=== PATIENT | male | born 1965 | race Caucasian/White ===

== ENCOUNTER 2020-04-27 17:23 | Inpatient (IN) ==
[2020-04-27 18:12] LABS: Hemoglobin 6.9 g/dL (12.9-16.9); Mean Corpuscular HGB Conc 31.4 g/dL (31.6-35.5); Mean Corpuscular Hemoglobin 31.9 pg (28.0-33.3); Mean Corpuscular Volume 101.9 fL (83.0-100.0); Mean Platelet Volume 10.1 fL (9.4-12.4); Platelet Count 122 K/mcL (140-400); Red Blood Count 2.16 M/mcL (4.19-5.50); Red Cell Distribution Width 23.6 % (11.5-14.5); White Blood Count 18.5 K/mcL (4.3-11.1)
[2020-04-27 18:17] LABS: INR 1.8; Prothrombin Time 20.8 Seconds (9.4-12.1)
[2020-04-27 18:31] LABS: Alanine Aminotransferase 79 Units/L (7-52); Albumin 1.5 g/dL (3.5-5.7); Albumin/Globulin Ratio 0.3 (1.1-2.2); Alkaline Phosphatase 106 Units/L (34-104); Aspartate Amino Transferase 132 Units/L (13-39); BUN/Creatinine Ratio 40 (6-26); Bilirubin,Direct 0.6 mg/dL (0.0-0.2); Bilirubin,Indirect 0.8 mg/dL (0.0-1.0); Bilirubin,Total 1.4 mg/dL (0.3-1.0); Blood Urea Nitrogen 50 mg/dL (6-20); Calcium 8.2 mg/dL (8.6-10.3); Carbon Dioxide 13 mEq/L (23-29); Chloride 116 mEq/L (98-107); Glucose 105 mg/dL (70-105); Lipase 54 Units/L (11-82); Osmolality,Calculated 290 (280-300); Potassium 5.6 mEq/L (3.5-5.1); Sodium 133 mEq/L (136-145); Total Protein 7.5 g/dL (6.4-8.9); eGFR For African Americans > 60 (> 60); eGFR For Non-African Americans 60 (> 60)
[2020-04-27 18:40] LABS: VBG HCO3 14 mEq/L (21-27); VBG PCO2 21 mmHg (41-51); VBG PH 7.44 pH Units (7.32-7.42); VBG PO2 167 mmHg (25-50)
[2020-04-27] MEDS ORDERED: Gadolinium Contrast Agent (WT Based) IV PRN (19:09)
[2020-04-27] MEDS ORDERED: Vancomycin 1,500 MG/265 ML IV.SOLN IVPB ONE (22:06)
[2020-04-27] MEDS ORDERED: Cefepime HCl 2,000 MG in Water for inj. (sterile) 20 ML IVP ONE (22:06)
[2020-04-27] MEDS ORDERED: 0.9 % Sodium Chloride 500 ML IVC ONE (22:26)
[2020-04-27 23:32] LABS: Bacteria,Urine Few per hpf (None-Few); Bilirubin,Urine Negative (Negative); Blood,Urine Large (Negative); Clarity,Urine Clear (Clear); Color,Urine Light-Yellow (Yellow); Glucose,Urine (UA) Normal (Normal); Ketones,Urine Negative (Negative); Leukocyte Esterase,Urine Negative (Negative); Mucus,Urine Few per lpf (None-Few); Nitrite,Urine Negative (Negative); PH,Urine 5.5 pH Units (5.0-8.0); Protein,Urine Trace mg/dL (Neg-Trace); Specific Gravity,Urine 1.014 (1.010-1.025); Squamous Epithelial Cell,Urine Few per hpf (None-Few); Urobilinogen,Urine Normal (Normal)
[2020-04-27] MEDS ORDERED: Ondansetron ODT 4 MG TAB.RAPDIS SL PRN (23:50)
[2020-04-27] MEDS ORDERED: Naloxone 0.4 MG/ML INJ IVP PRN (23:50)
[2020-04-28 01:33] LABS: Hematocrit 23.9 % (37.5-50.1); Hemoglobin 7.2 g/dL (12.9-16.9); Mean Corpuscular HGB Conc 30.1 g/dL (31.6-35.5); Mean Corpuscular Hemoglobin 31.9 pg (28.0-33.3); Mean Corpuscular Volume 105.8 fL (83.0-100.0); Mean Platelet Volume 10.6 fL (9.4-12.4); Platelet Count 117 K/mcL (140-400); Red Blood Count 2.26 M/mcL (4.19-5.50); Red Cell Distribution Width 23.7 % (11.5-14.5); White Blood Count 16.4 K/mcL (4.3-11.1)
[2020-04-28] MEDS ORDERED: 0.9 % Sodium Chloride 250 ML ONE ×3 (01:49→19:54)
[2020-04-28 01:59] LABS: BUN/Creatinine Ratio 41 (6-26); Blood Urea Nitrogen 49 mg/dL (6-20); Calcium 8.2 mg/dL (8.6-10.3); Carbon Dioxide 12 mEq/L (23-29); Chloride 117 mEq/L (98-107); Glucose 112 mg/dL (70-105); Osmolality,Calculated 290 (280-300); Potassium 5.7 mEq/L (3.5-5.1); Sodium 133 mEq/L (136-145); eGFR For African Americans > 60 (> 60); eGFR For Non-African Americans > 60 (> 60)
[2020-04-28] MEDS ORDERED: Isovue-370 500 ML BOTTLE IVP ONE (02:33)
[2020-04-28 02:38] LABS: Adenovirus Not Detected (Not Detect); Bordetella Pertussis Not Detected (Not Detect); Chlamydophila pneumoniae Not Detected (Not Detect); Coronavirus 229E Not Detected (Not Detect); Coronavirus HKU1 Not Detected (Not Detect); Coronavirus NL63 Not Detected (Not Detect); Coronavirus OC43 Not Detected (Not Detect); Human Metapneumovirus Not Detected (Not Detect); Human Rhinovirus/Enterovirus Not Detected (Not Detect); Influenza A Subtype 2009 H1 Not Detected (Not Detect); Influenza B Not Detected (Not Detect); Parainfluenza Virus 1 Not Detected (Not Detect); Parainfluenza Virus 2 Not Detected (Not Detect); Parainfluenza Virus 3 Not Detected (Not Detect); Parainfluenza Virus 4 Not Detected (Not Detect); Respiratory Syncytial Virus Not Detected (Not Detect); SARS-CoV-2 Not Detected (Not Detect)
[2020-04-28 02:39] LABS: Mycoplasma pneumoniae Not Detected (Not Detect)
[2020-04-28] MEDS ORDERED: 0.9 % Sodium Chloride 1,000 ML IVC ONE (03:29)
[2020-04-28 03:48] LABS: Alanine Aminotransferase 80 Units/L (7-52); Albumin 1.5 g/dL (3.5-5.7); Albumin/Globulin Ratio 0.3 (1.1-2.2); Alkaline Phosphatase 104 Units/L (34-104); Aspartate Amino Transferase 138 Units/L (13-39); Bilirubin,Direct 0.8 mg/dL (0.0-0.2); Bilirubin,Indirect 0.5 mg/dL (0.0-1.0); Bilirubin,Total 1.3 mg/dL (0.3-1.0); Globulin 5.9 g/dL (2.4-3.5); Total Protein 7.4 g/dL (6.4-8.9)
[2020-04-28 03:58] LABS: Amorphous Sediment,Urine Few per hpf (None-Few); Bacteria,Urine Few per hpf (None-Few); Bilirubin,Urine Negative (Negative); Blood,Urine Large (Negative); Clarity,Urine Clear (Clear); Color,Urine Light-Yellow (Yellow); Glucose,Urine (UA) Normal (Normal); Ketones,Urine Negative (Negative); Leukocyte Esterase,Urine Negative (Negative); Mucus,Urine Few per lpf (None-Few); Nitrite,Urine Negative (Negative); PH,Urine 5.5 pH Units (5.0-8.0); Protein,Urine Trace mg/dL (Neg-Trace); Specific Gravity,Urine 1.014 (1.010-1.025); Squamous Epithelial Cell,Urine Few per hpf (None-Few); Urobilinogen,Urine Normal (Normal)
[2020-04-28 04:06] LABS: Amphetamine Screen,Urine Negative ng/mL (Cutoff=1000); Barbiturate Screen,Urine Negative ng/mL (Cutoff=200); Benzodiazepines Screen,Urine Negative ng/mL (Cutoff=200); Cannabinoid Screen,Urine Negative ng/mL (Cutoff = 50); Cocaine Screen,Urine Negative ng/mL (Cutoff= 300); Opiate Screen,Urine Negative ng/mL (Cutoff=300); Phencyclidine Screen,Urine Negative ng/mL (Cutoff=25)
[2020-04-28] MEDS ORDERED: Perflutren Lipid Microsphere 1.3 ML in 0.9 % Sodium Chloride 8.7 ML IVP PRN (06:05)
[2020-04-28] MEDS: clonazePAM 1 MG TABLET PO SCH ×2 (06:47→08:49)
[2020-04-28 07:32] LABS: % Iron Saturation 23 % (20-55); Iron 34 mcg/dL (65-175); Transferrin 107 mg/dL (203-362)
[2020-04-28 07:43] LABS: Ferritin 449 ng/mL (20-250)
[2020-04-28 07:48] LABS: Folate 5.6 ng/mL (3.0-16.0)
[2020-04-28 07:57] LABS: Vitamin B12 > 1500 pg/mL (250-1100)
[2020-04-28] MEDS ORDERED: Piperacillin/Tazobactam 3.375 GM in 0.9 % Sodium Chloride Mini Bag 100 ML IVPB SCH (08:00)
[2020-04-28] MEDS ORDERED: Calcium Gluconate 1gm/50mL 1 GM/50 ML BAG IVPB ONE (08:42)
[2020-04-28] MEDS ORDERED: Lactulose Oral Soln 20 GM/30 ML UDC PO SCH (09:00)
[2020-04-28] MEDS ORDERED: Albuterol 2.5 MG/3 ML NEBULIZER IH ONE (09:10)
[2020-04-28 12:26] LABS: Hematocrit 23.8 % (37.5-50.1); Hemoglobin 7.4 g/dL (12.9-16.9)
[2020-04-28] MEDS ORDERED: Insulin Human Regular 10 UNIT in 0.9 % Sodium Chloride 10 ML IV ONE (15:07)
[2020-04-28] MEDS ORDERED: *HR* Dextrose 50 % in Water (Syg) 50 ML SYRINGE IVP ONE (15:08)
[2020-04-28] MEDS ORDERED: *HR* Dextrose 50 % in Water (Vial) 50 ML VIAL IVP ONE (15:30)
[2020-04-28 15:55] LABS: Appearance,CSF Clear (Clear)
[2020-04-28 16:10] LABS: Red Blood Cell,CSF < 2000 RBC/mcL
[2020-04-28 16:15] LABS: Appearance of Peritoneal Fl HAZY (Clear)
[2020-04-28 16:25] LABS: RBC,Peritoneal Fluid 2000 RBC/mcL
[2020-04-28 16:26] LABS: Glucose,CSF 48 mg/dL (40-70); Total Protein,CSF 35 mg/dL (15-45)
[2020-04-28 16:35] LABS: VBG HCO3 15 mEq/L (21-27); VBG PCO2 29 mmHg (41-51); VBG PH 7.34 pH Units (7.32-7.42); VBG PO2 152 mmHg (25-50)
[2020-04-28] MEDS: Lactulose Oral Soln 20 GM/30 ML UDC PO SCH ×2 (16:35→20:29)
[2020-04-28] MEDS: Acyclovir 700 MG in D5% in Water 250 ML IVPB SCH (16:35)
[2020-04-28 16:45] LABS: INR 1.8; Prothrombin Time 20.3 Seconds (9.4-12.1)
[2020-04-28 16:54] LABS: BUN/Creatinine Ratio 38 (6-26); Blood Urea Nitrogen 50 mg/dL (6-20); C-Reactive Protein 79 mg/L (Less than 10); Calcium 8.5 mg/dL (8.6-10.3); Carbon Dioxide 15 mEq/L (23-29); Chloride 120 mEq/L (98-107); Glucose 92 mg/dL (70-105); Osmolality,Calculated 299 (280-300); Potassium 5.2 mEq/L (3.5-5.1); Sodium 138 mEq/L (136-145); eGFR For African Americans > 60 (> 60); eGFR For Non-African Americans 56 (> 60)
[2020-04-28 17:09] LABS: Eosinophils,Peritoneal Fluid 0 %
[2020-04-28] MEDS: Erythromycin OPTH Oint LEFT EYE SCH ×2 (17:48→20:25)
[2020-04-28] MEDS: Ampicillin 2 GM in 0.9 % Sodium Chloride Mini Bag 100 ML IVPB SCH ×2 (18:29→20:25)
[2020-04-28] MEDS: Cefepime HCl 2,000 MG in 0.9 % Sodium Chloride Mini Bag 100 ML IVPB SCH (19:12)
[2020-04-28 19:54] LABS: Glucose,Peritoneal Fluid 94 mg/dL (No Ref Range); LDH,Peritoneal Fluid 111 Units/L (No Ref Range); Total Protein,Peritoneal Fluid < 2.0 g/dL
[2020-04-29] MEDS: Ampicillin 2 GM in 0.9 % Sodium Chloride Mini Bag 100 ML IVPB SCH ×3 (01:02→07:30)
[2020-04-29] MEDS: Cefepime HCl 2,000 MG in 0.9 % Sodium Chloride Mini Bag 100 ML IVPB SCH ×2 (01:03→07:29)
[2020-04-29] MEDS: Acyclovir 700 MG in D5% in Water 250 ML IVPB SCH ×2 (02:26→07:29)
[2020-04-29] MEDS ORDERED: Vancomycin 1,000 MG VIAL ONE (03:58)
[2020-04-29 04:00] LABS: Basophils # 0.1 K/mcL (0.0-0.2); Basophils % 0.5 %; Eosinophils # 0.2 K/mcL (0.0-0.6); Eosinophils % 1.4 %; Hematocrit 30.8 % (37.5-50.1); Immature Granulocytes % 0.9 % (0-4); Lymphocytes # 1.5 K/mcL (0.6-4.6); Lymphocytes % 9.5 %; Mean Corpuscular HGB Conc 31.5 g/dL (31.6-35.5); Mean Corpuscular Hemoglobin 32.1 pg (28.0-33.3); Mean Platelet Volume 10.3 fL (9.4-12.4); Monocytes # 0.9 K/mcL (0.0-1.3); Monocytes % 5.7 %; Neutrophils # 12.8 K/mcL (1.6-8.9); Platelet Count 104 K/mcL (140-400); Red Blood Count 3.02 M/mcL (4.19-5.50); Red Cell Distribution Width 22.6 % (11.5-14.5); White Blood Count 15.6 K/mcL (4.3-11.1)
[2020-04-29 04:03] LABS: Hemoglobin 9.7 g/dL (12.9-16.9)
[2020-04-29 04:06] LABS: INR 1.7; Prothrombin Time 19.8 Seconds (9.4-12.1)
[2020-04-29 04:20] LABS: Alanine Aminotransferase 79 Units/L (7-52); Albumin 1.6 g/dL (3.5-5.7); Albumin/Globulin Ratio 0.3 (1.1-2.2); Alkaline Phosphatase 87 Units/L (34-104); Aspartate Amino Transferase 113 Units/L (13-39); BUN/Creatinine Ratio 35 (6-26); Bilirubin,Direct 0.8 mg/dL (0.0-0.2); Bilirubin,Indirect 0.9 mg/dL (0.0-1.0); Bilirubin,Total 1.7 mg/dL (0.3-1.0); Blood Urea Nitrogen 48 mg/dL (6-20); Calcium 8.6 mg/dL (8.6-10.3); Carbon Dioxide 15 mEq/L (23-29); Chloride 121 mEq/L (98-107); Glucose 110 mg/dL (70-105); Osmolality,Calculated 303 (280-300); Potassium 4.7 mEq/L (3.5-5.1); Sodium 140 mEq/L (136-145); Total Protein 7.6 g/dL (6.4-8.9); eGFR For African Americans > 60 (> 60); eGFR For Non-African Americans 53 (> 60)
[2020-04-29] MEDS ORDERED: *HR* Dextrose 50 % in Water (Vial) 50 ML VIAL ONE (05:26)
[2020-04-29] MEDS ORDERED: *HR* Dextrose 50 % in Water (Vial) 50 ML VIAL IVP ONE ×2 (05:29→13:11)
[2020-04-29] MEDS: Lactulose Oral Soln 20 GM/30 ML UDC PO SCH ×3 (07:10→20:50)
[2020-04-29] MEDS: Erythromycin OPTH Oint LEFT EYE SCH ×3 (07:31→20:47)
[2020-04-29] MEDS ORDERED: Ringers Solution, Lactated 1,000 ML IVC SCH (07:45)
[2020-04-29] MEDS ORDERED: *HR* Propofol 200 MG/20 ML VIAL IVP ONE (08:59)
[2020-04-29] MEDS ORDERED: *HR* Succinylcholine 200 MG/10 ML VIAL IVP ONE (09:00)
[2020-04-29] MEDS ORDERED: *HR* Rocuronium Bromide 50 MG/5 ML VIAL ONE ×2 (09:00→10:54)
[2020-04-29] MEDS ORDERED: Lidocaine -MPF 2% 2 ML VIAL ONE ×2 (09:00→10:55)
[2020-04-29] MEDS ORDERED: *HR* FentaNYL (PF) 100 MCG/2 ML VIAL ONE ×2 (10:51→12:31)
[2020-04-29] MEDS ORDERED: Ketamine *HR* 500 MG/10 ML MDV ONE (10:59)
[2020-04-29] MEDS ORDERED: *HR* Vasopressin 20 UNIT/ML VIAL ONE (11:33)
[2020-04-29] MEDS ORDERED: *HR* PHENYLEPHRINE 1,000 MCG/10 ML SYRINGE IVP ONE (11:33)
[2020-04-29] MEDS ORDERED: *HR* HYDROmorphone PF 0.5 MG/0.5 ML SYRINGE IVP PRN (12:21)
[2020-04-29] MEDS ORDERED: Ondansetron 4 MG/2 ML VIAL IVP PRN (12:21)
[2020-04-29 12:42] LABS: Adenovirus F 40/41 PCR Not detected (Not detect); Astrovirus PCR Not detected (Not detect); C.difficile Toxin A/B Gene PCR Not detected (Not detect); Campylobacter by PCR Not detected (Not detect); Cryptosporidium by PCR Not detected (Not detect); Cyclospora cayetanensis PCR Not detected (Not detect); E. coli O157 by PCR Not detected (Not detect); Entamoeba histolytica PCR Not detected (Not detect); Enteroaggregative E.coli(EAEC) Not detected (Not detect); Enteropathogenic E.coli(EPEC) Not detected (Not detect); Enterotoxigenic E.coli (ETEC) Not detected (Not detect); Giardia lamblia PCR Not detected (Not detect); Norovirus GI/GII PCR Not detected (Not detect); Plesiomonas shigelloides PCR Not detected (Not detect); Rotavirus A PCR Not detected (Not detect); Salmonella PCR Not detected (Not detect); Sapovirus PCR Not detected (Not detect); Shig/EnteroinvasiveE coli EIEC Not detected (Not detect); Shigalike tox-prod E coli STEC Not detected (Not detect); Vibrio PCR Not detected (Not detect); Vibrio cholerae PCR Not detected (Not detect); Yersinia enterocolitica PCR Not detected (Not detect)
[2020-04-29] MEDS ORDERED: Perflutren Lipid Microsphere 1.3 ML in 0.9 % Sodium Chloride 8.7 ML IVP PRN (13:11)
[2020-04-29] MEDS ORDERED: Ondansetron ODT 4 MG TAB.RAPDIS SL PRN (13:11)
[2020-04-29] MEDS: 0.9 % Sodium Chloride 1,000 ML IVC SCH ×2 (13:47→16:18)
[2020-04-29] MEDS ORDERED: MetroNIDAZOLE 500 MG/100 ML 500 MG/100 ML BAG IVPB SCH (16:00)
[2020-04-29] MEDS: MetroNIDAZOLE 500 MG/100 ML 500 MG/100 ML BAG IVPB SCH (16:19)
[2020-04-29] MEDS: Gabapentin 300 MG CAPSULE PO SCH ×2 (16:24→20:50)
[2020-04-29 16:47] LABS: RBC,Pleural Fluid 191000 RBC/mcL
[2020-04-29 17:07] LABS: Total Protein,Pleural Fluid 4.5 g/dL
[2020-04-29 17:08] LABS: Hematocrit 22.4 % (37.5-50.1)
[2020-04-29 17:23] LABS: Hemoglobin 6.9 g/dL (12.9-16.9)
[2020-04-29] MEDS ORDERED: 0.9 % Sodium Chloride 250 ML ONE (17:46)
[2020-04-29 19:13] LABS: Appearance of Pleural Fl Bloody (Clear); Monocytes,Pleural Fluid 0 %
[2020-04-29] MEDS ORDERED: Cefepime HCl 2,000 MG in Water for inj. (sterile) 20 ML IVP SCH (20:00)
[2020-04-29] MEDS: Cefepime HCl 2,000 MG in Water for inj. (sterile) 20 ML IVP SCH ×2 (20:48→20:51)
[2020-04-30] MEDS ORDERED: Cefepime HCl 2,000 MG in Water for inj. (sterile) 20 ML IVP SCH
[2020-04-30] MEDS ORDERED: 0.9 % Sodium Chloride 250 ML ONE ×2 (00:14→00:15)
[2020-04-30] MEDS: MetroNIDAZOLE 500 MG/100 ML 500 MG/100 ML BAG IVPB SCH ×3 (00:23→15:45)
[2020-04-30] MEDS: *HR* HYDROcodone/Acet 5/325 mg TABLET PO PRN ×3 (01:24→12:43)
[2020-04-30 05:06] LABS: Basophils # 0.1 K/mcL (0.0-0.2); Basophils % 0.4 %; Eosinophils % 0.2 %; Hematocrit 30.3 % (37.5-50.1); Immature Granulocytes % 1.1 % (0-4); Lymphocytes # 1.9 K/mcL (0.6-4.6); Lymphocytes % 12.1 %; Mean Corpuscular HGB Conc 31.7 g/dL (31.6-35.5); Mean Corpuscular Hemoglobin 30.7 pg (28.0-33.3); Mean Corpuscular Volume 96.8 fL (83.0-100.0); Mean Platelet Volume 10.4 fL (9.4-12.4); Monocytes # 0.8 K/mcL (0.0-1.3); Monocytes % 5.2 %; Platelet Count 100 K/mcL (140-400); Red Blood Count 3.13 M/mcL (4.19-5.50); Red Cell Distribution Width 21.2 % (11.5-14.5)
[2020-04-30 05:07] LABS: Hemoglobin 9.6 g/dL (12.9-16.9)
[2020-04-30 05:16] LABS: INR 1.8; Prothrombin Time 20.1 Seconds (9.4-12.1)
[2020-04-30 05:25] LABS: Albumin 1.6 g/dL (3.5-5.7); Albumin/Globulin Ratio 0.3 (1.1-2.2); Bilirubin,Direct 0.7 mg/dL (0.0-0.2); Bilirubin,Indirect 0.8 mg/dL (0.0-1.0); Bilirubin,Total 1.5 mg/dL (0.3-1.0); Calcium 8.2 mg/dL (8.6-10.3); Globulin 5.5 g/dL (2.4-3.5); Potassium 4.9 mEq/L (3.5-5.1); Total Protein 7.1 g/dL (6.4-8.9)
[2020-04-30] MEDS: 0.9 % Sodium Chloride 1,000 ML IVC SCH ×2 (06:22→09:25)
[2020-04-30] MEDS ORDERED: Ringers Solution, Lactated 1,000 ML IVC SCH (07:30)
[2020-04-30] MEDS: Gabapentin 300 MG CAPSULE PO SCH ×3 (08:02→21:16)
[2020-04-30] MEDS: Cefepime HCl 2,000 MG in Water for inj. (sterile) 20 ML IVP SCH ×2 (08:02→21:15)
[2020-04-30] MEDS: Lactulose Oral Soln 20 GM/30 ML UDC PO SCH ×2 (08:03→15:46)
[2020-04-30] MEDS: Erythromycin OPTH Oint LEFT EYE SCH ×3 (08:04→21:14)
[2020-04-30] MEDS ORDERED: Furosemide 20 MG/2 ML VIAL IVP ONE (08:45)
[2020-04-30] MEDS: *HR* OxyCODONE Immed Rel 5 MG TABLET PO PRN ×3 (10:33→21:18)
[2020-04-30] MEDS: clonazePAM 1 MG TABLET PO SCH ×2 (10:33→21:18)
[2020-04-30] MEDS: Nicotine 14 MG PATCH.TD24 TD SCH (11:25)
[2020-04-30] MEDS ORDERED: Ipratropium/Albuterol Neb 3 ML IH PRN (16:53)
[2020-04-30 17:25] LABS: Hematocrit 27.4 % (37.5-50.1); Hemoglobin 8.6 g/dL (12.9-16.9)
[2020-05-01] MEDS: Lactulose Oral Soln 20 GM/30 ML UDC PO SCH (01:06)
[2020-05-01] MEDS: MetroNIDAZOLE 500 MG/100 ML 500 MG/100 ML BAG IVPB SCH ×4 (01:08→23:20)
[2020-05-01] MEDS: 0.9 % Sodium Chloride 1,000 ML IVC SCH (01:12)
[2020-05-01 04:54] LABS: Immature Granulocytes % 0.7 % (0-4); Mean Platelet Volume 10.8 fL (9.4-12.4); Red Blood Count 2.85 M/mcL (4.19-5.50); Red Cell Distribution Width 21.1 % (11.5-14.5); Segmented Neutrophils % 74.5 %
[2020-05-01 04:56] LABS: Basophils % 0.3 %; Eosinophils # 0.3 K/mcL (0.0-0.6); Eosinophils % 2.4 %; Hemoglobin 8.8 g/dL (12.9-16.9); Immature Platelets 2.6 % (1.1-6.1); Lymphocytes # 2.1 K/mcL (0.6-4.6); Lymphocytes % 15.6 %; Mean Corpuscular HGB Conc 31.4 g/dL (31.6-35.5); Mean Corpuscular Hemoglobin 30.9 pg (28.0-33.3); Mean Corpuscular Volume 98.2 fL (83.0-100.0); Monocytes # 0.9 K/mcL (0.0-1.3); Monocytes % 6.5 %; Neutrophils # 9.8 K/mcL (1.6-8.9); White Blood Count 13.2 K/mcL (4.3-11.1)
[2020-05-01 05:00] LABS: INR 1.9; Platelet Count 95 K/mcL (140-400); Prothrombin Time 21.3 Seconds (9.4-12.1)
[2020-05-01 05:13] LABS: Alanine Aminotransferase 50 Units/L (7-52); Albumin < 1.5 g/dL (3.5-5.7); Alkaline Phosphatase 74 Units/L (34-104); Aspartate Amino Transferase 53 Units/L (13-39); BUN/Creatinine Ratio 42 (6-26); Bilirubin,Direct 0.4 mg/dL (0.0-0.2); Bilirubin,Indirect 0.6 mg/dL (0.0-1.0); Blood Urea Nitrogen 64 mg/dL (6-20); Calcium 7.9 mg/dL (8.6-10.3); Carbon Dioxide 16 mEq/L (23-29); Chloride 121 mEq/L (98-107); Glucose 102 mg/dL (70-105); Osmolality,Calculated 305 (280-300); Potassium 4.9 mEq/L (3.5-5.1); Sodium 138 mEq/L (136-145); Total Protein 6.3 g/dL (6.4-8.9); eGFR For African Americans 58 (> 60); eGFR For Non-African Americans 48 (> 60)
[2020-05-01] MEDS: *HR* OxyCODONE Immed Rel 5 MG TABLET PO PRN (06:15)
[2020-05-01] MEDS: Nicotine 14 MG PATCH.TD24 TD SCH (08:12)
[2020-05-01] MEDS: Gabapentin 300 MG CAPSULE PO SCH ×3 (08:12→20:19)
[2020-05-01] MEDS: clonazePAM 1 MG TABLET PO SCH ×2 (08:12→20:18)
[2020-05-01] MEDS: Cefepime HCl 2,000 MG in Water for inj. (sterile) 20 ML IVP SCH ×2 (08:13→20:19)
[2020-05-01] MEDS: Erythromycin OPTH Oint LEFT EYE SCH ×3 (08:13→20:20)
[2020-05-01] MEDS ORDERED: Furosemide 40 MG/4 ML VIAL IVP ONE (09:24)
[2020-05-01] MEDS: *HR* HYDROcodone/Acet 5/325 mg TABLET PO PRN (11:30)
[2020-05-01] MEDS ORDERED: *HR* Dextrose 50 % in Water (Vial) 50 ML VIAL IVP PRN (11:35)
[2020-05-01] MEDS ORDERED: Dextrose Gel 15 GM/37.5 ML TUBE PO PRN ×2 (11:35)
[2020-05-01] MEDS ORDERED: D5% in Water 1,000 ML IVC PRN (11:35)
[2020-05-01] MEDS: Insulin LISPRO 300 UNITS/3 ML VIAL SUBQ SCH ×3 (11:54→20:20)
[2020-05-02 04:43] LABS: Basophils # 0.1 K/mcL (0.0-0.2); Basophils % 0.4 %; Eosinophils # 0.2 K/mcL (0.0-0.6); Eosinophils % 1.4 %; Hematocrit 30.3 % (37.5-50.1); Hemoglobin 9.3 g/dL (12.9-16.9); Immature Granulocytes % 0.9 % (0-4); Lymphocytes # 2.4 K/mcL (0.6-4.6); Lymphocytes % 14.7 %; Mean Corpuscular HGB Conc 30.7 g/dL (31.6-35.5); Mean Platelet Volume 10.5 fL (9.4-12.4); Monocytes # 0.9 K/mcL (0.0-1.3); Monocytes % 5.8 %; Neutrophils # 12.5 K/mcL (1.6-8.9); Platelet Count 101 K/mcL (140-400); Red Cell Distribution Width 20.8 % (11.5-14.5); Segmented Neutrophils % 76.8 %; White Blood Count 16.2 K/mcL (4.3-11.1)
[2020-05-02 04:47] LABS: INR 1.9; Prothrombin Time 21.2 Seconds (9.4-12.1)
[2020-05-02 05:03] LABS: Albumin 1.6 g/dL (3.5-5.7); Albumin/Globulin Ratio 0.3 (1.1-2.2); Bilirubin,Direct 0.6 mg/dL (0.0-0.2); Bilirubin,Indirect 0.5 mg/dL (0.0-1.0); Bilirubin,Total 1.1 mg/dL (0.3-1.0); Calcium 8.5 mg/dL (8.6-10.3); Potassium 5.5 mEq/L (3.5-5.1); Total Protein 6.6 g/dL (6.4-8.9)
[2020-05-02] MEDS: Insulin LISPRO 300 UNITS/3 ML VIAL SUBQ SCH ×4 (07:44→23:16)
[2020-05-02] MEDS: Nicotine 14 MG PATCH.TD24 TD SCH (07:44)
[2020-05-02] MEDS: MetroNIDAZOLE 500 MG/100 ML 500 MG/100 ML BAG IVPB SCH ×3 (07:44→23:24)
[2020-05-02] MEDS: clonazePAM 1 MG TABLET PO SCH ×2 (08:17→23:22)
[2020-05-02] MEDS: Cefepime HCl 2,000 MG in Water for inj. (sterile) 20 ML IVP SCH ×2 (08:17→23:22)
[2020-05-02] MEDS: Erythromycin OPTH Oint LEFT EYE SCH ×3 (08:17→23:15)
[2020-05-02] MEDS: Gabapentin 300 MG CAPSULE PO SCH ×3 (08:18→23:23)
[2020-05-02 11:09] LABS: HSV Source CSF
[2020-05-02] MEDS ORDERED: Sodium Bicarbonate 150 MEQ in D5% in Water 1,000 ML IVC SCH (18:45)
[2020-05-03 06:47] LABS: Basophils # 0.1 K/mcL (0.0-0.2); Basophils % 0.4 %; Eosinophils # 0.2 K/mcL (0.0-0.6); Eosinophils % 1.3 %; Hematocrit 28.3 % (37.5-50.1); Hemoglobin 8.6 g/dL (12.9-16.9); Immature Granulocytes % 0.7 % (0-4); Lymphocytes % 13.4 %; Mean Corpuscular HGB Conc 30.4 g/dL (31.6-35.5); Mean Corpuscular Hemoglobin 30.6 pg (28.0-33.3); Mean Corpuscular Volume 100.7 fL (83.0-100.0); Mean Platelet Volume 10.6 fL (9.4-12.4); Monocytes # 1.1 K/mcL (0.0-1.3); Monocytes % 7.2 %; Neutrophils # 11.4 K/mcL (1.6-8.9); Platelet Count 103 K/mcL (140-400); Red Blood Count 2.81 M/mcL (4.19-5.50); Red Cell Distribution Width 20.5 % (11.5-14.5); White Blood Count 14.8 K/mcL (4.3-11.1)
[2020-05-03 06:51] LABS: Prothrombin Time 22.8 Seconds (9.4-12.1)
[2020-05-03] MEDS: MetroNIDAZOLE 500 MG/100 ML 500 MG/100 ML BAG IVPB SCH ×2 (07:12→15:15)
[2020-05-03] MEDS: clonazePAM 1 MG TABLET PO SCH (07:12)
[2020-05-03] MEDS: Gabapentin 300 MG CAPSULE PO SCH (07:12)
[2020-05-03] MEDS: Cefepime HCl 2,000 MG in Water for inj. (sterile) 20 ML IVP SCH ×2 (07:12→19:26)
[2020-05-03] MEDS: Nicotine 14 MG PATCH.TD24 TD SCH (07:12)
[2020-05-03] MEDS: Insulin LISPRO 300 UNITS/3 ML VIAL SUBQ SCH ×3 (07:13→17:19)
[2020-05-03 07:18] LABS: Alanine Aminotransferase 43 Units/L (7-52); Albumin 1.6 g/dL (3.5-5.7); Albumin/Globulin Ratio 0.3 (1.1-2.2); Alkaline Phosphatase 85 Units/L (34-104); Aspartate Amino Transferase 45 Units/L (13-39); BUN/Creatinine Ratio 51 (6-26); Bilirubin,Direct 0.5 mg/dL (0.0-0.2); Bilirubin,Indirect 0.6 mg/dL (0.0-1.0); Bilirubin,Total 1.1 mg/dL (0.3-1.0); Blood Urea Nitrogen 69 mg/dL (6-20); Calcium 8.5 mg/dL (8.6-10.3); Carbon Dioxide 19 mEq/L (23-29); Chloride 124 mEq/L (98-107); Globulin 4.9 g/dL (2.4-3.5); Glucose 87 mg/dL (70-105); Osmolality,Calculated 319 (280-300); Potassium 5.3 mEq/L (3.5-5.1); Sodium 145 mEq/L (136-145); Total Protein 6.5 g/dL (6.4-8.9); eGFR For African Americans > 60 (> 60); eGFR For Non-African Americans 54 (> 60)
[2020-05-03] MEDS: Erythromycin OPTH Oint LEFT EYE SCH ×3 (08:32→19:26)
[2020-05-03] MEDS ORDERED: Vancomycin 500 MG in 0.9 % Sodium Chloride Mini Bag 100 ML IVPB ONE (09:00)
[2020-05-03 10:49] LABS: ABG Base Excess -6 mEq/L (-2 to 3); ABG HCO3 20 mEq/L (21-27); ABG Oxygen Saturation 93 % (95-98); ABG PCO2 44 mmHg (35-45); ABG PH 7.27 pH Units (7.32-7.45); ABG PO2 76 mmHg (85-104); ABG TCO2 22 mEq/L (20-26)
[2020-05-03] MEDS ORDERED: Artificial Tears SOLN 15 ML BOTTLE BOTH EYES PRN (11:41)
[2020-05-03] MEDS: FentaNYL (PF) 1,000 MCG/100 ML IV.SOLN IVC SCH ×2 (11:51→18:55)
[2020-05-03] MEDS: Dexmedetomidine HCl 400 MCG/100 ML MLS IVC SCH (11:52)
[2020-05-03] MEDS ORDERED: Furosemide 20 MG/2 ML VIAL IVP ONE (11:57)
[2020-05-03] MEDS ORDERED: Albumin 25% 25gram/100mL 25 GM/100 ML IV.SOLN ONE (12:29)
[2020-05-03] MEDS ORDERED: Albumin 25% 25gram/100mL 25 GM/100 ML IV.SOLN IVPB ONE (12:31)
[2020-05-03] MEDS: Midazolam HCl 50 MG/100 ML IV.SOLN IVC SCH ×2 (12:54→18:53)
[2020-05-03] MEDS: Norepinephrine 4 MG/254 ML IV.SOLN IVC SCH (12:55)
[2020-05-03] MEDS: Pantoprazole 40 MG VIAL IVP SCH (13:27)
[2020-05-03] MEDS: Chlorhexidine Rinse 15 ML MOUTHWASH MM SCH ×2 (13:27→19:25)
[2020-05-03] MEDS: Artificial Tears SOLN 15 ML BOTTLE BOTH EYES SCH ×3 (13:27→19:25)
[2020-05-03 13:55] LABS: ABG Base Excess -6 mEq/L (-2 to 3); ABG HCO3 22 mEq/L (21-27); ABG Oxygen Saturation 100 % (95-98); ABG PCO2 49 mmHg (35-45); ABG PH 7.26 pH Units (7.32-7.45); ABG PO2 563 mmHg (85-104); ABG TCO2 23 mEq/L (20-26); Blood Gas Modality ASSIST CONTROL; Blood Gas VT 400 cc
[2020-05-03 14:02] LABS: Basophils # 0.1 K/mcL (0.0-0.2); Basophils % 0.4 %; Eosinophils # 0.2 K/mcL (0.0-0.6); Eosinophils % 0.8 %; Hematocrit 27.3 % (37.5-50.1); Hemoglobin 8.2 g/dL (12.9-16.9); Immature Granulocytes % 0.8 % (0-4); Lymphocytes % 10.7 %; Mean Corpuscular Hemoglobin 31.3 pg (28.0-33.3); Mean Corpuscular Volume 104.2 fL (83.0-100.0); Mean Platelet Volume 10.8 fL (9.4-12.4); Monocytes # 1.3 K/mcL (0.0-1.3); Monocytes % 6.7 %; Neutrophils # 15.3 K/mcL (1.6-8.9); Platelet Count 122 K/mcL (140-400); Red Blood Count 2.62 M/mcL (4.19-5.50); Red Cell Distribution Width 20.8 % (11.5-14.5); Segmented Neutrophils % 80.6 %
[2020-05-03 14:18] LABS: Alanine Aminotransferase 39 Units/L (7-52); Albumin/Globulin Ratio 0.4 (1.1-2.2); Alkaline Phosphatase 73 Units/L (34-104); Aspartate Amino Transferase 43 Units/L (13-39); BUN/Creatinine Ratio 49 (6-26); Bilirubin,Total 1.2 mg/dL (0.3-1.0); Blood Urea Nitrogen 71 mg/dL (6-20); Calcium 8.6 mg/dL (8.6-10.3); Carbon Dioxide 18 mEq/L (23-29); Chloride 125 mEq/L (98-107); Globulin 4.5 g/dL (2.4-3.5); Glucose 115 mg/dL (70-105); Magnesium 2.1 mg/dL (1.6-2.6); Osmolality,Calculated 324 (280-300); Phosphorous 4.3 mg/dL (2.7-4.5); Potassium 5.6 mEq/L (3.5-5.1); Sodium 146 mEq/L (136-145); Total Protein 6.5 g/dL (6.4-8.9); eGFR For African Americans > 60 (> 60); eGFR For Non-African Americans 50 (> 60)
[2020-05-03] MEDS ORDERED: *HR* Midazolam HCl 5 MG/5 ML VIAL IVP ONE (15:03)
[2020-05-03] MEDS ORDERED: *HR* Etomidate 40 MG/20 ML VIAL IVP ONE (15:03)
[2020-05-03] MEDS: Ipratropium/Albuterol Neb 3 ML IH SCH ×3 (15:10→23:42)
[2020-05-03] MEDS: clonazePAM 0.5 MG TABLET PO SCH (19:25)
[2020-05-04] MEDS: Insulin LISPRO 300 UNITS/3 ML VIAL SUBQ SCH ×5 (00:41→23:18)
[2020-05-04] MEDS: Artificial Tears SOLN 15 ML BOTTLE BOTH EYES SCH ×7 (00:45→23:16)
[2020-05-04] MEDS: MetroNIDAZOLE 500 MG/100 ML 500 MG/100 ML BAG IVPB SCH ×4 (00:46→23:17)
[2020-05-04] MEDS: Ipratropium/Albuterol Neb 3 ML IH SCH ×6 (03:46→23:37)
[2020-05-04 04:40] LABS: Basophils # 0.1 K/mcL (0.0-0.2); Basophils % 0.7 %; Eosinophils # 0.3 K/mcL (0.0-0.6); Eosinophils % 1.9 %; Hematocrit 25.6 % (37.5-50.1); Hemoglobin 7.8 g/dL (12.9-16.9); Immature Granulocytes % 0.7 % (0-4); Lymphocytes # 2.5 K/mcL (0.6-4.6); Lymphocytes % 18.5 %; Mean Corpuscular HGB Conc 30.5 g/dL (31.6-35.5); Mean Corpuscular Hemoglobin 31.2 pg (28.0-33.3); Mean Corpuscular Volume 102.4 fL (83.0-100.0); Mean Platelet Volume 11.1 fL (9.4-12.4); Monocytes # 1.1 K/mcL (0.0-1.3); Monocytes % 8.1 %; Neutrophils # 9.6 K/mcL (1.6-8.9); Platelet Count 113 K/mcL (140-400); Red Cell Distribution Width 20.9 % (11.5-14.5); Segmented Neutrophils % 70.1 %; White Blood Count 13.7 K/mcL (4.3-11.1)
[2020-05-04 04:53] LABS: INR 2.1; Prothrombin Time 23.5 Seconds (9.4-12.1)
[2020-05-04 05:00] LABS: Albumin 1.8 g/dL (3.5-5.7); Albumin/Globulin Ratio 0.4 (1.1-2.2); Bilirubin,Direct 0.5 mg/dL (0.0-0.2); Bilirubin,Indirect 0.5 mg/dL (0.0-1.0); Calcium 8.4 mg/dL (8.6-10.3); Globulin 4.3 g/dL (2.4-3.5); Potassium 5.2 mEq/L (3.5-5.1); Total Protein 6.1 g/dL (6.4-8.9)
[2020-05-04 05:19] LABS: ABG Base Excess -6 mEq/L (-2 to 3); ABG HCO3 19 mEq/L (21-27); ABG Oxygen Saturation 97 % (95-98); ABG PCO2 36 mmHg (35-45); ABG PH 7.33 pH Units (7.32-7.45); ABG PO2 100 mmHg (85-104); ABG TCO2 20 mEq/L (20-26); Blood Gas Modality ASSIST CONTROL; Blood Gas VT 400 cc
[2020-05-04] MEDS: FentaNYL (PF) 1,000 MCG/100 ML IV.SOLN IVC SCH ×2 (05:40→15:34)
[2020-05-04] MEDS ORDERED: Vasopressin 40 UNIT in D5% in Water 100 ML IVC SCH (05:45)
[2020-05-04] MEDS: Cefepime HCl 2,000 MG in Water for inj. (sterile) 20 ML IVP SCH ×2 (07:44→20:25)
[2020-05-04] MEDS: Chlorhexidine Rinse 15 ML MOUTHWASH MM SCH ×2 (07:44→20:24)
[2020-05-04] MEDS: Nicotine 14 MG PATCH.TD24 TD SCH (07:44)
[2020-05-04] MEDS: clonazePAM 0.5 MG TABLET PO SCH ×2 (07:45→20:24)
[2020-05-04] MEDS: Pantoprazole 40 MG VIAL IVP SCH (07:45)
[2020-05-04] MEDS: Erythromycin OPTH Oint LEFT EYE SCH ×3 (07:46→20:25)
[2020-05-04] MEDS ORDERED: Vancomycin 500 MG in 0.9 % Sodium Chloride Mini Bag 100 ML IVPB ONE (08:00)
[2020-05-04] MEDS: *HR* OxyCODONE Immed Rel 5 MG TABLET PO PRN (08:17)
[2020-05-04] MEDS: Dexmedetomidine HCl 400 MCG/100 ML MLS IVC SCH ×2 (12:44→20:51)
[2020-05-04] MEDS: Norepinephrine 4 MG/254 ML IV.SOLN IVC SCH ×3 (12:45→23:14)
[2020-05-04] MEDS: Gabapentin 300 MG CAPSULE PO SCH ×2 (14:37→20:25)
[2020-05-04 16:54] LABS: BUN/Creatinine Ratio 47 (6-26); Blood Urea Nitrogen 74 mg/dL (6-20); Calcium 8.3 mg/dL (8.6-10.3); Carbon Dioxide 16 mEq/L (23-29); Chloride 127 mEq/L (98-107); Glucose 87 mg/dL (70-105); Osmolality,Calculated 325 (280-300); Potassium 5.3 mEq/L (3.5-5.1); Sodium 147 mEq/L (136-145); eGFR For African Americans 55 (> 60); eGFR For Non-African Americans 45 (> 60)
[2020-05-04] MEDS: Albumin 25% 25gram/100mL 25 GM/100 ML IV.SOLN IVC SCH ×4 (17:13→22:13)
[2020-05-04 17:23] LABS: Creatine Kinase < 10 Units/L (30-223)
[2020-05-04 17:25] LABS: Complement C3 46 mg/dL (87-200)
[2020-05-04 18:59] LABS: Sodium, Urine 32.7 mEq/L
[2020-05-04 19:01] LABS: Bacteria,Urine Few per hpf (None-Few); Bilirubin,Urine Negative (Negative); Blood,Urine Moderate (Negative); Clarity,Urine Turbid (Clear); Color,Urine Yellow (Yellow); Glucose,Urine (UA) Normal (Normal); Ketones,Urine Negative (Negative); Leukocyte Esterase,Urine Small (Negative); Mucus,Urine Few per lpf (None-Few); Nitrite,Urine Negative (Negative); Protein,Urine 70 mg/dL (Neg-Trace); Renal Epithelial Cells,Urine Few per hpf (None-Few); Specific Gravity,Urine 1.018 (1.010-1.025); Squamous Epithelial Cell,Urine Few per hpf (None-Few); Urobilinogen,Urine Normal (Normal); WBC,Urine 15-30 per hpf (0-3)
[2020-05-04] MEDS: FentaNYL (PF) 2,500 MCG/50 ML IV.SOLN IVC SCH (21:34)
[2020-05-05] MEDS: Ipratropium/Albuterol Neb 3 ML IH SCH ×6 (03:21→23:38)
[2020-05-05] MEDS: Artificial Tears SOLN 15 ML BOTTLE BOTH EYES SCH ×6 (04:04→23:24)
[2020-05-05 04:20] LABS: ABG Base Excess -9 mEq/L (-2 to 3); ABG HCO3 19 mEq/L (21-27); ABG Oxygen Saturation 96 % (95-98); ABG PCO2 49 mmHg (35-45); ABG PH 7.18 pH Units (7.32-7.45); ABG PO2 104 mmHg (85-104); ABG TCO2 20 mEq/L (20-26); Blood Gas Modality ASSIST CONTROL; Blood Gas VT 400 cc
[2020-05-05 04:45] LABS: Basophils # 0.1 K/mcL (0.0-0.2); Basophils % 0.4 %; Eosinophils # 0.3 K/mcL (0.0-0.6); Eosinophils % 1.8 %; Hematocrit 26.9 % (37.5-50.1); Hemoglobin 7.7 g/dL (12.9-16.9); Immature Granulocytes % 0.5 % (0-4); Immature Platelets 3.6 % (1.1-6.1); Lymphocytes # 2.9 K/mcL (0.6-4.6); Lymphocytes % 21.1 %; Mean Corpuscular HGB Conc 28.6 g/dL (31.6-35.5); Mean Corpuscular Hemoglobin 30.8 pg (28.0-33.3); Mean Corpuscular Volume 107.6 fL (83.0-100.0); Mean Platelet Volume 11.2 fL (9.4-12.4); Monocytes # 1.1 K/mcL (0.0-1.3); Monocytes % 7.7 %; Red Cell Distribution Width 21.2 % (11.5-14.5); Segmented Neutrophils % 68.5 %; White Blood Count 13.8 K/mcL (4.3-11.1)
[2020-05-05] MEDS: FentaNYL (PF) 2,500 MCG/50 ML IV.SOLN IVC SCH ×2 (04:47→16:16)
[2020-05-05 04:58] LABS: Neutrophils # 9.5 K/mcL (1.6-8.9); Platelet Count 94 K/mcL (140-400)
[2020-05-05 05:03] LABS: Albumin/Globulin Ratio 0.9 (1.1-2.2); Bilirubin,Direct 0.6 mg/dL (0.0-0.2); Bilirubin,Indirect 0.4 mg/dL (0.0-1.0); Calcium 8.9 mg/dL (8.6-10.3); Globulin 3.4 g/dL (2.4-3.5); Total Protein 6.4 g/dL (6.4-8.9)
[2020-05-05] MEDS: Dexmedetomidine HCl 400 MCG/100 ML MLS IVC SCH (05:16)
[2020-05-05] MEDS ORDERED: Sodium Bicarbonate 150 MEQ in D5% in Water 1,000 ML IVC SCH (06:00)
[2020-05-05] MEDS: Insulin LISPRO 300 UNITS/3 ML VIAL SUBQ SCH ×4 (06:28→23:25)
[2020-05-05] MEDS ORDERED: Vancomycin 500 MG in 0.9 % Sodium Chloride Mini Bag 100 ML IVPB ONE (08:00)
[2020-05-05] MEDS: Pantoprazole 40 MG VIAL IVP SCH (08:06)
[2020-05-05] MEDS: Chlorhexidine Rinse 15 ML MOUTHWASH MM SCH ×2 (08:06→20:33)
[2020-05-05] MEDS: clonazePAM 0.5 MG TABLET PO SCH ×2 (08:07→20:33)
[2020-05-05] MEDS: Cefepime HCl 2,000 MG in Water for inj. (sterile) 20 ML IVP SCH ×2 (08:07→20:34)
[2020-05-05] MEDS: Gabapentin 300 MG CAPSULE PO SCH ×3 (08:08→20:33)
[2020-05-05] MEDS: MetroNIDAZOLE 500 MG/100 ML 500 MG/100 ML BAG IVPB SCH ×3 (08:08→23:23)
[2020-05-05] MEDS: Erythromycin OPTH Oint LEFT EYE SCH ×3 (08:08→20:34)
[2020-05-05] MEDS: Nicotine 14 MG PATCH.TD24 TD SCH (08:27)
[2020-05-05] MEDS: Albumin 25% 25gram/100mL 25 GM/100 ML IV.SOLN IVC SCH ×4 (11:02→16:14)
[2020-05-05] MEDS ORDERED: Perflutren Lipid Microsphere 1.3 ML in 0.9 % Sodium Chloride 8.7 ML IVP PRN (11:21)
[2020-05-05] MEDS: Metoclopramide 10 MG/2 ML VIAL IVP SCH ×2 (12:13→20:33)
[2020-05-05 12:35] LABS: ABG Base Excess -4 mEq/L (-2 to 3); ABG HCO3 24 mEq/L (21-27); ABG Oxygen Saturation 95 % (95-98); ABG PCO2 57 mmHg (35-45); ABG PH 7.23 pH Units (7.32-7.45); ABG PO2 91 mmHg (85-104); ABG TCO2 26 mEq/L (20-26); Blood Gas VT 400 cc
[2020-05-05 12:35] LABS: Calcium 8.7 mg/dL (8.6-10.3); Potassium 4.7 mEq/L (3.5-5.1)
[2020-05-05] MEDS: Midazolam HCl 50 MG/100 ML IV.SOLN IVC SCH (14:32)
[2020-05-05 16:55] LABS: Protein/Creatinine Ratio,Urine 3.38 mg/mg (0.00-0.20)
[2020-05-05] MEDS: Norepinephrine 4 MG/254 ML IV.SOLN IVC SCH (17:12)
[2020-05-05] MEDS: D5% in 0.45% NACL 1,000 ML IVC SCH (17:13)
[2020-05-05 17:55] LABS: INR 2.8; Prothrombin Time 31.5 Seconds (9.4-12.1)
[2020-05-06] MEDS: Artificial Tears SOLN 15 ML BOTTLE BOTH EYES SCH ×5 (03:24→21:04)
[2020-05-06] MEDS: D5% in 0.45% NACL 1,000 ML IVC SCH ×2 (03:24→12:13)
[2020-05-06] MEDS: Metoclopramide 10 MG/2 ML VIAL IVP SCH ×3 (03:29→21:06)
[2020-05-06] MEDS: Ipratropium/Albuterol Neb 3 ML IH SCH ×6 (03:47→23:54)
[2020-05-06 04:19] LABS: Hematocrit 24.2 % (37.5-50.1); Mean Corpuscular Volume 105.2 fL (83.0-100.0); Red Cell Distribution Width 21.3 % (11.5-14.5)
[2020-05-06 04:21] LABS: Basophils % 0.5 %; Eosinophils # 0.1 K/mcL (0.0-0.6); Hemoglobin 7.2 g/dL (12.9-16.9); INR 2.5; Immature Granulocytes % 0.7 % (0-4); Lymphocytes # 1.3 K/mcL (0.6-4.6); Lymphocytes % 17.1 %; Mean Corpuscular HGB Conc 29.8 g/dL (31.6-35.5); Mean Corpuscular Hemoglobin 31.3 pg (28.0-33.3); Mean Platelet Volume 11.2 fL (9.4-12.4); Monocytes # 0.6 K/mcL (0.0-1.3); Monocytes % 7.3 %; Neutrophils # 5.7 K/mcL (1.6-8.9); Platelet Count 69 K/mcL (140-400); Prothrombin Time 27.7 Seconds (9.4-12.1); Segmented Neutrophils % 73.4 %; White Blood Count 7.7 K/mcL (4.3-11.1)
[2020-05-06 04:37] LABS: Albumin 3.3 g/dL (3.5-5.7); Albumin/Globulin Ratio 1.3 (1.1-2.2); Bilirubin,Total 0.8 mg/dL (0.3-1.0); Calcium 8.5 mg/dL (8.6-10.3); Globulin 2.6 g/dL (2.4-3.5); Magnesium 1.9 mg/dL (1.6-2.6); Phosphorous 4.3 mg/dL (2.7-4.5); Potassium 4.8 mEq/L (3.5-5.1); Total Protein 5.9 g/dL (6.4-8.9)
[2020-05-06 04:55] LABS: ABG Base Excess -3 mEq/L (-2 to 3); ABG HCO3 24 mEq/L (21-27); ABG Oxygen Saturation 97 % (95-98); ABG PCO2 58 mmHg (35-45); ABG PH 7.23 pH Units (7.32-7.45); ABG PO2 106 mmHg (85-104); ABG TCO2 26 mEq/L (20-26); Blood Gas VT 400 cc
[2020-05-06] MEDS: Insulin LISPRO 300 UNITS/3 ML VIAL SUBQ SCH ×3 (06:08→17:53)
[2020-05-06] MEDS: Nicotine 14 MG PATCH.TD24 TD SCH (09:44)
[2020-05-06] MEDS: Gabapentin 300 MG CAPSULE PO SCH ×3 (09:45→21:06)
[2020-05-06] MEDS: Pantoprazole 40 MG VIAL IVP SCH (09:45)
[2020-05-06] MEDS: MetroNIDAZOLE 500 MG/100 ML 500 MG/100 ML BAG IVPB SCH ×3 (09:45→23:43)
[2020-05-06] MEDS: Cefepime HCl 2,000 MG in Water for inj. (sterile) 20 ML IVP SCH ×2 (09:45→21:05)
[2020-05-06] MEDS: clonazePAM 0.5 MG TABLET PO SCH ×2 (09:45→21:06)
[2020-05-06] MEDS: Chlorhexidine Rinse 15 ML MOUTHWASH MM SCH ×2 (09:45→21:06)
[2020-05-06] MEDS: Midazolam HCl 50 MG/100 ML IV.SOLN IVC SCH (09:48)
[2020-05-06] MEDS ORDERED: D5% in 0.45% NACL 1,000 ML IVC SCH (12:38)
[2020-05-06] MEDS ORDERED: Vancomycin 500 MG in 0.9 % Sodium Chloride Mini Bag 100 ML IVPB ONE (16:00)
[2020-05-06] MEDS: FentaNYL (PF) 2,500 MCG/50 ML IV.SOLN IVC SCH (17:53)
[2020-05-06 22:18] LABS: Influenza A PCR Negative (Negative); Influenza B PCR Negative (Negative); Resp. Syncytial Virus PCR Negative (Negative)
[2020-05-06 22:19] LABS: SARS-CoV-2 by PCR (In House) Negative (Negative)
[2020-05-07 02:14] VITALS: BP 82/54
[2020-05-07] MEDS: Insulin LISPRO 300 UNITS/3 ML VIAL SUBQ SCH (02:15)
[2020-05-07] MEDS: Artificial Tears SOLN 15 ML BOTTLE BOTH EYES SCH (02:16)
== END 2020-05-07 03:20 | disposition short-term general hospital (02) | DRG 710 ==
LOC: EMEROOARM 17:23 → 3NENU 17:23 → OBSVTOIN 22:58 → SUATTDRO 22:58 → 3NENU 04-28 00:13 → 2NNU 04-28 15:58 → ICNU 04-29 12:59
PROVIDERS: ADMIT Family Medicine; ATTEND Internal Medicine